=== PATIENT | female | born 1945 | race Caucasian/White ===

== ENCOUNTER 2019-10-03 07:57 | Emergency (ER) | payer MEDICARE, MEDICAID ==
[~2019-10-03] VITALS: Ht 160 cm; Wt 77.1 kg
[~2019-10-03 07:57] MED LIST: ACET-2267 PO; AMLO5TAB9 PO; APIX5TAB PO; ASPI-586 PO; ATOR20TA66 PO; CARV25TA PO; LEVE500T6 PO; LOSA50TA63 PO; PANT40TA3 PO; POTA10CA43 PO
[2019-10-03] MEDS ORDERED: CYCL10TA9 PO (08:33)
--- NOTE | 2019-10-03 08:33 | ED Back Pain ---
General Chief Complaint: Back Problems Stated Complaint: BACK PAIN Nursing Triage Note: Patient reports left lower back/upper left buttock pain for 3 weeks, denies radiation down her leg, denies any injury. States she has never had pain like this before. Nursing Sepsis Screen: No Definite Risk Source of Information: Patient Exam Limitations: No Limitations History of Present Illness Date Seen by Provider: Oct 03, 2019 Time Seen by Provider: 08:25 Initial Comments 74 y/o female presents w 3 weeks of left low back pain without injury. Worse w changing positions or certain movements. No radiation of pain, no dysuria or hematuria. No fever, chills or wt loss. Denies abdominal or flank pain. Taking OTC ibuprofen occasionally w some relief. Pain is not constant. She has not seen her PCP re this back pain. Allergies and Home Medications Allergies Coded Allergies: [id number]-Gfv Reductase Inhibitor (Verified Allergy, Unknown, 10/03/19) Home Medications Acetaminophen 500 Mg Tablet, 1,000 MG PO Q8H PRN for PAIN-MILD, (Reported) TAKE 2 (500MG) TABS Aspirin 81 Mg Tablet.dr, 81 MG PO DAILY, (Reported) Atorvastatin Calcium 20 Mg Tablet, 20 MG PO HS, (Reported) Carvedilol 25 Mg Tablet, 25 MG PO BID, (Reported) Cyclobenzaprine HCl 10 Mg Tablet, 10 MG PO qhs PRN for SPASMS Prescribed by: JESUS VERA on 10/03/19 0833 Levetiracetam 500 Mg Tablet, 500 MG PO BID Prescribed by: NESSA LAKHANI on 06/26/18 0958 Losartan Potassium 50 Mg Tablet, 50 MG PO HS, (Reported) Pantoprazole Sodium 40 Mg Tablet.dr, 40 MG PO DAILY, (Reported) Potassium Chloride 10 Meq Capsule.er, 10 MEQ PO DAILY, (Reported) Patient Home Medication List Home Medication List Reviewed: Yes Review of Systems Constitutional: see HPI; No dizziness, No fever, No malaise, No weakness Respiratory: no symptoms reported Cardiovascular: no symptoms reported Gastrointestinal: No abdominal pain, No constipation, No diarrhea, No loss of appetite, No nausea, No vomiting Genitourinary: see HPI; No decreased output, No dysuria, No hematuria, No nocturia Musculoskeletal: see HPI, back pain; No joint pain; muscle pain; No muscle cramps, No neck pain Past [id number]-[id number] Hx Past Med/Social Hx: Reviewed Nursing Past Med/Soc Hx Patient Social History Alcohol Use: Denies Use Recreational Drug Use: No Smoking Status: Never a Smoker 2nd Hand Smoke Exposure: No Recent Foreign Travel: No Contact w/Someone Who Travel: No Recent Infectious Disease Expo: No Recent Hopitalizations: No Physical Abuse: No Sexual Abuse: No Mistreated: No Fear: No Seasonal Allergies Seasonal Allergies: No Past Medical History Surgeries: Yes (heart valve replacement) Respiratory: No Cardiac: Yes Coronary Artery Disease, Hypertension Neurological: Yes Stroke Genitourinary: Yes Bladder Infection Gastrointestinal: No Musculoskeletal: No Endocrine: No HEENT: No Cancer: No Psychosocial: No Integumentary: No Physical Exam Vital Signs Vital Signs - First Documented 10/03/19 08:05 Temp 36.4 Pulse 82 Resp 22 B/P (MAP) 208/105 (139) Pulse Ox 97 O2 Delivery Room Air Capillary Refill : Less Than 3 Seconds Height, Weight, BMI Height: '" Weight: lbs. oz. kg; 30.00 BMI Method: General Appearance: No Apparent Distress, WD/WN Cardiovascular: Regular Rate, Rhythm, No Murmur Respiratory: Chest Non Tender, Lungs Clear, Normal Breath Sounds Gastrointestinal: Non Tender, Soft Back: Normal Inspection, No CVA Tenderness, No Vertebral Tenderness, Decreased Range of Motion, Muscle Spasm (lower left lumbar paraspinal ms) Neurologic/Psychiatric: Alert, Oriented x3, No Motor/Sensory Deficits, Normal Mood/Affect Skin: Normal Color, Warm/Dry Progress/Results/Core Measures Results/Orders Lab Results Laboratory Tests Test 10/03/19 08:05 Range/Units Urine Color PALE YELLOW Urine Clarity CLEAR Urine pH 6.5 5-9 Urine Specific [place] 1.010 L 1.016-1.022 Urine Protein 1+ H NEGATIVE Urine Glucose (UA) NEGATIVE NEGATIVE Urine Ketones NEGATIVE NEGATIVE Urine Nitrite NEGATIVE NEGATIVE Urine Bilirubin NEGATIVE NEGATIVE Urine Urobilinogen 0.2 < = 1.0 MG/DL Urine Leukocyte Esterase NEGATIVE NEGATIVE Urine RBC (Auto) NEGATIVE NEGATIVE Urine RBC NONE /HPF Urine WBC NONE /HPF Urine Squamous Epithelial Cells RARE /HPF Urine Crystals NONE /LPF Urine Bacteria NEGATIVE /HPF Urine Casts NONE /LPF Urine Mucus NEGATIVE /LPF Urine Culture Indicated NO My Orders Orders - ROMACKENZIESTJESUS TOLEDO DO Ua Culture If Indicated (10/03/19 08:30) Vital Signs/I&O 10/03/19 10/03/19 08:05 09:03 Temp 36.4 Pulse 82 74 Resp 22 22 B/P (MAP) 208/105 (139) 188/104 Pulse Ox 97 94 O2 Delivery Room Air Room Air Blood Pressure Mean: 139 Departure Impression Primary Impression: Acute lumbar myofascial strain Qualified Codes: S39.012A - Strain of muscle, fascia and tendon of lower back, initial encounter Disposition: HOME, SELF-CARE Condition: Stable Departure-Patient Inst. Decision time for Depature: 08:32 Referrals: NO,LOCAL PHYSICIAN (PCP/Family) Primary Care Physician Patient Instructions: Lumbar Muscle Strain (DC) Add. Discharge Instructions: See Dr Bustos (your PCP) in 1 week if your back pain is not improving. All discharge instructions reviewed with patient and/or family. Voiced understanding. Scripts Cyclobenzaprine HCl (Cyclobenzaprine HCl) 10 Mg Tablet 10 MG PO qhs PRN for SPASMS, #15 TAB 0 Refills Prov: JESUS VERA DO 10/03/19 JESUS VERA DO Oct 03, 2019 08:33
[2019-10-03 08:43] LABS: CLARITY,URINE CLEAR; COLOR,URINE PALE YELLOW
[2019-10-03 08:44] LABS: BACTERIA,URINE NEGATIVE /HPF; BILIRUBIN,URINE NEGATIVE (NEGATIVE); GLUCOSE, URINE (UA) NEGATIVE (NEGATIVE); KETONES,URINE NEGATIVE (NEGATIVE); LEUKOCYTE ESTERASE ,URINE NEGATIVE (NEGATIVE); NITRITE,URINE NEGATIVE (NEGATIVE); PH,URINE 6.5 (5-9); PROTEIN,URINE 1+ (NEGATIVE); SQUAMOUS EPITHELIAL CELL,UR RARE /HPF
[2019-10-03 09:03] VITALS: BP 188/104
--- OUTSIDE RECORDS SUMMARY | 2019-10-03 12:26 | XMS REPORT | Continuity of Care Document ---
Demographics Preferred Language Unknown Marital Status Unknown Jainism Affiliation Unknown Race Unknown Ethnic Group Unknown Author Organization Unknown Address Unknown Phone Unavailable Allergies Active Description Code Type Severity Reaction Onset Reported/Identified Relationship to Patient Clinical Status Yes Cfmjpvy-Gmf-Meo Reductase Inhibitor [id number] Drug Allergy Unknown N/A 03/01/2018 Medications There is no data. Problems Date Dx Coded Attending Type Code Diagnosis Diagnosed By 03/01/2018 LAURA PULIDO MD, Ot E78.00 PURE HYPERCHOLESTEROLEMIA, UNSPECIFIED 03/01/2018 LAURA PULIDO MD Ot I25.10 ATHSCL HEART DISEASE OF [place] CORONARY 03/01/2018 LAURA PULIDO MD Ot K21.9 GASTRO-ESOPHAGEAL REFLUX DISEASE WITHOUT 03/01/2018 LAURA PULIDO MD Ot R60.0 LOCALIZED EDEMA 03/01/2018 LAURA PULIDO MD Ot Z79.01 SENIOR LIVING (CURRENT) USE OF ANTICOAGULANT 03/01/2018 LAURA PULIDO MD Ot Z86.73 PRSNL HX OF TIA (TIA), AND CEREB INFRC W 03/01/2018 LAURA PULIDO MD Ot Z88.8 ALLERGY STATUS TO OTH DRUG/MEDS/BIOL SUB 03/01/2018 LAURA PULIDO MD Ot Z98.890 OTHER SPECIFIED POSTPROCEDURAL STATES 03/03/2018 LAURA PULIDO MD, Ot E78.00 PURE HYPERCHOLESTEROLEMIA, UNSPECIFIED 03/03/2018 LAURA PULIDO MD Ot I25.10 ATHSCL HEART DISEASE OF [place] CORONARY 03/03/2018 LAURA PULIDO MD Ot K21.9 GASTRO-ESOPHAGEAL REFLUX DISEASE WITHOUT 03/03/2018 LAURA PULIDO MD Ot R60.0 LOCALIZED EDEMA 03/03/2018 LAURA PULIDO MD Ot Z79.01 PSYCHOLOGY DEPARTMENT CHAIR (CURRENT) USE OF ANTICOAGULANT 03/03/2018 LAURA PULIDO MD Ot Z86.73 PRSNL HX OF TIA (TIA), AND CEREB INFRC W 03/03/2018 LAURA PULIDO MD Ot Z88.8 ALLERGY STATUS TO OTH DRUG/MEDS/BIOL SUB 03/03/2018 ASHOK PADGETT, LAURA Loo Ot Z98.890 OTHER SPECIFIED POSTPROCEDURAL STATES 03/07/2018 NELIDA MALHOTRA MD, Ot Z01.818 ENCOUNTER FOR OTHER PREPROCEDURAL EXAMIN 03/08/2018 NELIDA MALHOTRA MD, Ot Z01.818 ENCOUNTER FOR OTHER PREPROCEDURAL EXAMIN 03/14/2018 NELIDA MALHOTRA MD, Ot E11.9 TYPE 2 DIABETES MELLITUS WITHOUT COMPLIC 03/14/2018 NELIDA MLAHOTRA MD, Ot I1 0 ESSENTIAL (PRIMARY) HYPERTENSION 03/14/2018 NELIDA MALHOTRA MD, Ot Z79.01 SENIOR LIVING (CURRENT) USE OF ANTICOAGULANT 03/14/2018 NELIDA MALHOTRA MD, Ot Z79.82 PSYCHOLOGY DEPARTMENT CHAIR (CURRENT) USE OF ASPIRIN 03/14/2018 NELIDA MALHOTRA MD, Ot Z79.84 PSYCHOLOGY DEPARTMENT CHAIR (CURRENT) USE OF ORAL HYPOGLYC 03/14/2018 NELIDA MALHOTRA MD, Ot Z79.899 OTHER PSYCHOLOGY DEPARTMENT CHAIR (CURRENT) DRUG THERAPY 03/14/2018 NELIDA MALHOTRA MD Ot Z86.73 PRSNL HX OF TIA (TIA), AND CEREB INFRC W 03/16/2018 NELIDA MALHOTRA MD Ot E11.9 TYPE 2 DIABETES MELLITUS WITHOUT COMPLIC 03/16/2018 NELIDA MALHOTRA MD, Ot I1 0 ESSENTIAL (PRIMARY) HYPERTENSION 03/16/2018 NELIDA MALHOTRA MD Ot Z79.01 PSYCHOLOGY DEPARTMENT CHAIR (CURRENT) USE OF ANTICOAGULANT 03/16/2018 NELIDA MALHOTRA MD Ot Z79.82 SENIOR LIVING (CURRENT) USE OF ASPIRIN 03/16/2018 NELIDA MALHOTRA MD Ot Z79.84 PSYCHOLOGY DEPARTMENT CHAIR (CURRENT) USE OF ORAL HYPOGLYC 03/16/2018 NELIDA MALHOTRA MD, Ot Z79.899 OTHER PSYCHOLOGY DEPARTMENT CHAIR (CURRENT) DRUG THERAPY 03/16/2018 NELIDA MALHOTRA MD, Ot Z86.73 PRSNL HX OF TIA (TIA), AND CEREB INFRC W 06/24/2018 KELLY COBIAN MD Ot E04.2 NONTOXIC MULTINODULAR GOITER 06/26/2018 NESSA LAKHANI MD Ot E04. 2 NONTOXIC MULTINODULAR GOITER 06/26/2018 NESSA LAKHANI MD Ot E78. 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 A1 MYOCARDIAL INFARCTION TYPE 2 06/26/2018 NESSA LAKHANI MD Ot I25. 10 ATHSCL HEART DISEASE OF [place] CORONARY 06/26/2018 NESSA LAKHANI MD Ot I48. 0 PAROXYSMAL ATRIAL FIBRILLATION 06/26/2018 NESSA LAKHANI MD Ot I69.320 APHASIA FOLLOWING CEREBRAL INFARCTION 06/26/2018 NESSA LAKHANI MD Ot I69.328 OTH SPEECH/LANG DEFICITS FOLLOWING CEREB 06/26/2018 NESSA LAKHANI MD Ot I69.351 HEMIPLGA FOLLOWING CEREBRAL INFRC AFF RI 06/26/2018 NESSA LAKHANI MD Ot I69.391 DYSPHAGIA FOLLOWING CEREBRAL INFARCTION 06/26/2018 NESSA LAKHANI MD Ot I95. 9 HYPOTENSION, UNSPECIFIED 06/26/2018 NESSA LAKHANI MD Ot K21. 9 GASTRO-ESOPHAGEAL REFLUX DISEASE WITHOUT 06/26/2018 NESSA LAKHANI MD Ot N17. 9 ACUTE KIDNEY FAILURE, UNSPECIFIED 06/26/2018 NESSA LAKHANI MD Ot R00. 1 BRADYCARDIA, UNSPECIFIED 06/26/2018 NESSA LAKHANI MD Ot R13. 10 DYSPHAGIA, UNSPECIFIED 06/26/2018 NESSA LAKHANI MD Ot S09.93XA UNSPECIFIED INJURY OF FACE, INITIAL ENCO 06/26/2018 NESSA LAKHANI MD Ot X58.XXXA EXPOSURE TO OTHER SPECIFIED FACTORS, INI 06/26/2018 KAR PADGETT, NESSA Loo Ot Z23 ENCOUNTER FOR IMMUNIZATION 07/07/2018 KELLY COBIAN MD Ot E04.2 NONTOXIC MULTINODULAR GOITER 07/08/2018 RAMY AYALA MD Ot E78. 2 MIXED HYPERLIPIDEMIA 07/08/2018 RAMY AYALA MD Ot I10 ESSENTIAL (PRIMARY) HYPERTENSION 07/08/2018 RAMY AYALA MD Ot I48. 2 CHRONIC ATRIAL FIBRILLATION 07/08/2018 RAMY AYALA MD Ot I63. 9 CEREBRAL INFARCTION, UNSPECIFIED 07/08/2018 RAMY AYALA MD Ot R06. 09 OTHER FORMS OF DYSPNEA 07/19/2018 RAMY AYALA MD Ot E78. 2 MIXED HYPERLIPIDEMIA 07/19/2018 RAMY AYALA MD Ot I10 ESSENTIAL (PRIMARY) HYPERTENSION 07/19/2018 RAMY AYALA MD Ot I48. 2 CHRONIC ATRIAL FIBRILLATION 07/19/2018 RAMY AYALA MD Ot I63. 9 CEREBRAL INFARCTION, UNSPECIFIED 07/19/2018 RAMY AYALA MD Ot R06. 09 OTHER FORMS OF DYSPNEA 07/20/2018 RAMY AYALA MD Ot E11. 9 TYPE 2 DIABETES MELLITUS WITHOUT COMPLIC 07/20/2018 RAMY AYALA MD Ot E78. 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 2 CHRONIC ATRIAL FIBRILLATION 07/20/2018 RAMY AYALA MD Ot I65. 23 OCCLUSION AND STENOSIS OF BILATERAL [place] 07/20/2018 RAMY AYALA MD Ot R06. 09 OTHER FORMS OF DYSPNEA 07/20/2018 RAMY AYALA MD Ot R60. 9 EDEMA, UNSPECIFIED 07/20/2018 RAMY AYALA MD Ot Z79. 01 PSYCHOLOGY DEPARTMENT CHAIR (CURRENT) USE OF ANTICOAGULANT 07/20/2018 RAMY AYALA MD Ot Z79. 82 PSYCHOLOGY DEPARTMENT CHAIR (CURRENT) USE OF ASPIRIN 07/20/2018 RAMY AYALA MD Ot Z79.899 OTHER SENIOR LIVING (CURRENT) DRUG THERAPY 07/20/2018 RAMY AYALA MD Ot Z86. 73 PRSNL HX OF TIA (TIA), AND CEREB INFRC W 07/23/2018 RAMY AYALA MD Ot E11. 9 TYPE 2 DIABETES MELLITUS WITHOUT COMPLIC 07/23/2018 RAMY AYALA MD Ot E78. 2 MIXED HYPERLIPIDEMIA 07/23/2018 RAMY AYALA MD Ot I10 ESSENTIAL (PRIMARY) HYPERTENSION 07/23/2018 RAMY AYALA MD Ot I25.118 ATHSCL HEART DISEASE OF [place] COR ART W 07/23/2018 RAMY AYALA MD Ot I48. 2 CHRONIC ATRIAL FIBRILLATION 07/23/2018 RAMY AYALA MD Ot I65. 23 OCCLUSION AND STENOSIS OF [place] 07/23/2018 RAMY AYALA MD Ot R06. 09 OTHER FORMS OF DYSPNEA 07/23/2018 RAMY AYALA MD Ot R60. 9 EDEMA, UNSPECIFIED 07/23/2018 RAMY AYALA MD Ot Z79. 01 SENIOR LIVING (CURRENT) USE OF ANTICOAGULANT 07/23/2018 RAMY AYALA MD Ot Z79. 82 SENIOR LIVING (CURRENT) USE OF ASPIRIN 07/23/2018 RAMY AYALA MD Ot Z79.899 OTHER SENIOR LIVING (CURRENT) DRUG THERAPY 07/23/2018 RAMY AYALA MD Ot Z86. 73 PRSNL HX OF TIA (TIA), AND CEREB INFRC W 07/29/2018 RAMY AYALA MD Ot E78. 2 MIXED HYPERLIPIDEMIA 07/29/2018 RAMY AYALA MD Ot I10 ESSENTIAL (PRIMARY) HYPERTENSION 07/29/2018 RAMY AYALA MD Ot I48. 2 CHRONIC ATRIAL FIBRILLATION 07/29/2018 RAMY AYALA MD Ot I63. 9 CEREBRAL INFARCTION, UNSPECIFIED 07/29/2018 RAMY AYALA MD Ot R06. 09 OTHER FORMS OF DYSPNEA 08/04/2018 RAMY AYALA MD Ot E78. 2 MIXED HYPERLIPIDEMIA 08/04/2018 RAMY AYALA MD Ot I10 ESSENTIAL (PRIMARY) HYPERTENSION 08/04/2018 RAMY AYALA MD Ot I48. 2 CHRONIC ATRIAL FIBRILLATION 08/04/2018 RAMY AYALA MD Ot I63. 9 CEREBRAL INFARCTION, UNSPECIFIED 08/04/2018 RAMY AYALA MD Ot R06. 09 OTHER FORMS OF DYSPNEA 08/08/2018 RAMY AYALA MD Ot E78. 2 MIXED HYPERLIPIDEMIA 08/08/2018 RAMY AYALA MD Ot I10 ESSENTIAL (PRIMARY) HYPERTENSION 08/08/2018 RAMY AYALA MD Ot I48. 2 CHRONIC ATRIAL FIBRILLATION 08/08/2018 RAMY AYALA MD Ot I63. 9 CEREBRAL INFARCTION, UNSPECIFIED 08/08/2018 RAMY AYALA MD Ot R06. 09 OTHER FORMS OF DYSPNEA 08/19/2018 RAMY AYALA MD Ot E78. 2 MIXED HYPERLIPIDEMIA 08/19/2018 RAMY AYALA MD Ot I10 ESSENTIAL (PRIMARY) HYPERTENSION 08/19/2018 RAMY AYALA MD Ot I48. 2 CHRONIC ATRIAL FIBRILLATION 08/19/2018 RAMY AYALA MD Ot I63. 9 CEREBRAL INFARCTION, UNSPECIFIED 08/19/2018 RAMY AYALA MD Ot R06. 09 OTHER FORMS OF DYSPNEA 11/11/2018 RAMY AYALA MD Ot Z48.812 ENCNTR FOR SURGICAL AFTCR FOLLOWING SURG 11/11/2018 RAMY AYALA MD Ot Z95. 5 PRESENCE OF CORONARY ANGIOPLASTY IMPLANT 12/15/2018 RAMY AYALA MD Ot Z48.812 ENCNTR FOR SURGICAL AFTCR FOLLOWING SURG 12/15/2018 RAMY AYALA MD Ot Z95. 5 PRESENCE OF CORONARY ANGIOPLASTY IMPLANT 12/16/2018 RAMY AYALA MD Ot Z48.812 ENCNTR FOR SURGICAL AFTCR FOLLOWING SURG 12/16/2018 RAMY AYALA MD Ot Z95. 5 PRESENCE OF CORONARY ANGIOPLASTY IMPLANT 12/16/2018 RAMY AYALA MD Ot Z48.812 ENCNTR FOR SURGICAL AFTCR FOLLOWING SURG 12/16/2018 RAMY AYALA MD Ot Z95. 5 PRESENCE OF CORONARY ANGIOPLASTY IMPLANT 01/05/2019 RAMY AYALA MD Ot Z48.812 ENCNTR FOR SURGICAL AFTCR FOLLOWING SURG 01/05/2019 RAMY AYALA MD Ot Z95. 5 PRESENCE OF CORONARY ANGIOPLASTY IMPLANT 01/24/2019 RAMY AYALA MD Ot Z48.812 ENCNTR FOR SURGICAL AFTCR FOLLOWING SURG 01/24/2019 RAMY AYALA MD Ot Z95. 5 PRESENCE OF CORONARY ANGIOPLASTY IMPLANT 03/16/2019 RAMY AYALA MD Ot Z48.812 ENCNTR FOR SURGICAL AFTCR FOLLOWING SURG 03/16/2019 RAMY AYALA MD Ot Z95. 5 PRESENCE OF CORONARY ANGIOPLASTY IMPLANT 10/03/2019 ARANZA PADGETT, KELLY Loo Ot E04.2 NONTOXIC MULTINODULAR GOITER 10/03/2019 RAMY AYALA MD Ot E78. 2 MIXED HYPERLIPIDEMIA 10/03/2019 RAMY AYALA MD Ot I10 ESSENTIAL (PRIMARY) HYPERTENSION 10/03/2019 RAMY AYALA MD Ot I48. 2 CHRONIC ATRIAL FIBRILLATION 10/03/2019 LUCY PADGETT, RAMY Lange Ot I63. 9 CEREBRAL INFARCTION, UNSPECIFIED 10/03/2019 LUCY PADGETT, RAMY Lange Ot R06. 09 OTHER FORMS OF DYSPNEA 10/03/2019 LUCY PADGETT, RAMY Lange Ot E78. 2 MIXED HYPERLIPIDEMIA 10/03/2019 LUCY PADGETT, RAMY Lange Ot I10 ESSENTIAL (PRIMARY) HYPERTENSION 10/03/2019 RAMY AYALA MD Ot I48. 2 CHRONIC ATRIAL FIBRILLATION 10/03/2019 RAMY AYALA MD Ot I63. 9 CEREBRAL INFARCTION, UNSPECIFIED 10/03/2019 LUCY PADGETT, RAMY Lange Ot R06. 09 OTHER FORMS OF DYSPNEA 10/03/2019 Ot Z48.812 EN CNTR FOR SURGICAL AFTCR FOLLOWING SURG 10/03/2019 Ot Z95.5 PRES ENCE OF CORONARY ANGIOPLASTY IMPLANT 10/03/2019 ARANZA PADGETT, KELLY Loo Ot E04.2 NONTOXIC MULTINODULAR GOITER 10/03/2019 RAMY AYALA MD Ot E78. 2 MIXED HYPERLIPIDEMIA 10/03/2019 RAMY AYALA MD Ot I10 ESSENTIAL (PRIMARY) HYPERTENSION 10/03/2019 RAMY AYALA MD Ot I48. 2 CHRONIC ATRIAL FIBRILLATION 10/03/2019 RAMY AYALA MD Ot I63. 9 CEREBRAL INFARCTION, UNSPECIFIED 10/03/2019 RAMY AYALA MD Ot R06. 09 OTHER FORMS OF DYSPNEA 10/03/2019 RAMY AYALA MD Ot E78. 2 MIXED HYPERLIPIDEMIA 10/03/2019 RAMY AYALA MD Ot I10 ESSENTIAL (PRIMARY) HYPERTENSION 10/03/2019 RAMY AYALA MD Ot I48. 2 CHRONIC ATRIAL FIBRILLATION 10/03/2019 RAMY AYALA MD Ot I63. 9 CEREBRAL INFARCTION, UNSPECIFIED 10/03/2019 RAMY AYALA MD Ot R06. 09 OTHER FORMS OF DYSPNEA 10/03/2019 Ot Z48.812 EN CNTR FOR SURGICAL AFTCR FOLLOWING SURG 10/03/2019 Ot Z95.5 PRES ENCE OF CORONARY ANGIOPLASTY IMPLANT Procedures There is no data. Results Test Result Range Complete urinalysis with reflex to cultu re - 03/01/18 18:40 Urine color determination YELLOW NRG Urine clarity determination SLIGHTLY CLOUDY NRG Urine pH measurement by test strip 8 5-9 Specific gravity of urine by test strip 1.010 1.016-1.022 Urine protein assay by test strip, semi-quantitative NEGATIVE NEGATIVE Urine glucose detection by automated test strip NE GATIVE NEGATIVE Erythrocytes detection in urine sediment by light micr oscopy NEGATIVE NEGATIVE Urine ketones detection by automated test strip NE GATIVE NEGATIVE Urine nitrite detection by test strip NEGATIVE NEGATIVE Urine total bilirubin detection by test strip NEGA TIVE NEGATIVE Urine urobilinogen measurement by automated test strip (mass/volume) NORMAL NORMAL Urine leukocyte esterase detection by dipstick NEG ATIVE NEGATIVE Automated urine sediment erythrocyte cou nt by microscopy (number/high power field) NONE NRG Automated urine sediment leukocyte count by microscopy (number/high power field) NONE NRG Bacteria detection in urine sediment by light microsco py NEGATIVE NRG Squamous epithelial cells detection in u rine sediment by light microscopy 0-2 NRG Crystals detection in urine sediment by light microsco py NONE NRG Casts detection in urine sediment by light microscopy NONE NRG Mucus detection in urine sediment by light microscopy NEGATIVE NRG Complete urinalysis with reflex to culture NO NRG Amorphous sediment detection in urine sediment by ligh t microscopy FEW ADRIENNE PHOSPHATE NRG Blood CBC with ordered manual differenti al panel - 06/24/18 16:07 Blood leukocytes automated count (number/volume) 7.6 10*3/uL 4.3-11.0 Blood erythrocytes automated count (number/volume) 4.93 10*6/uL 4.35-5.85 Venous blood hemoglobin measurement (mass/volume) 15.0 g/dL 11.5-16.0 Blood hematocrit (volume fraction) 44 % 35-52 Automated erythrocyte mean corpuscular volume 89 [ foz_us] 80-99 Automated erythrocyte mean corpuscular h emoglobin (mass per erythrocyte) 30 pg 25-34 Automated erythrocyte mean corpuscular h emoglobin concentration measurement (mass/volume) 34 g/dL 32-36 Automated erythrocyte distribution width ratio 13. 9 % 10.0- 14.5 Automated blood platelet count (count/volume) 202 10*3/uL 130-400 Automated blood platelet mean volume measurement 10.9 [foz_us] 7.4-10.4 Automated blood neutrophils/100 leukocytes 56 % 42-75 Automated blood lymphocytes/100 leukocytes 30 % 12-44 Blood monocytes/100 leukocytes 10 % NRG Automated blood eosinophils/100 leukocytes 4 % 0-10 Automated blood basophils/100 leukocytes 1 % 0-10 Blood neutrophils automated count (number/volume) 4.3 10*3 1.8-7.8 Blood lymphocytes automated count (number/volume) 2.3 10*3 1.0-4.0 Blood monocytes automated count (number/volume) 0. 7 10*3 0.0-1.0 Automated eosinophil count 0.3 10*3/uL 0 .0-0.3 Automated blood basophil count (count/volume) 0.1 10*3/uL 0.0-0.1 Manual blood segmented neutrophils/100 leukocytes 49 % NRG Blood band neutrophils/100 leukocytes 1 % NRG Manual blood lymphocytes/100 leukocytes 34 % NRG Manual eosinophils/100 leukocytes in nose 6 % NRG Manual blood basophils/100 leukocytes 0 % NRG Blood erythrocyte morphology finding identification NORMAL NRG PT panel in platelet poor plasma by coag ulation assay - 06/24/18 16:07 Prothrombin time (PT) in platelet poor plasma by coagu lation assay 15.8 s 12.2-14.7 INR in platelet poor plasma or blood by coagulation as say 1.2 0.8-1.4 Activated partial thromboplastin time (a PTT) in platelet poor plasma bycoagulation assay - 06/24/18 16:07 Activated partial thromboplastin time (a PTT) in platelet poor plasma bycoagulation assay 23 s 24-35 Comprehensive metabolic panel - 06/24/18 16:07 Serum or plasma sodium measurement (moles/volume) 142 mmol/L 135-145 Serum or plasma potassium measurement (moles/volume) 4.7 mmol/L 3.6-5.0 Serum or plasma chloride measurement (moles/volume) 99 mmol/L 98-107 Carbon dioxide 19 mmol/L 21-32 Serum or plasma anion gap determination (moles/volume) 24 mmol/L 5-14 Serum or plasma urea nitrogen measurement (mass/volume ) 34 mg/dL 7-18 Serum or plasma creatinine measurement (mass/volume) 1.36 mg/dL 0.60-1.30 Serum or plasma urea nitrogen/creatinine mass ratio 25 NRG Serum or plasma creatinine measurement w ith calculation of estimated glomerular filtration rate 38 NRG Serum or plasma glucose measurement (mass/volume) 142 mg/dL 70-105 Serum or plasma calcium measurement (mass/volume) 9.6 mg/dL 8.5-10.1 Serum or plasma total bilirubin measurement (mass/volu me) 0.6 mg/dL 0.1-1.0 Serum or plasma alkaline phosphatase robert surement (enzymatic activity/volume) 93 U/L 40-136 Serum or plasma aspartate aminotransfera se measurement (enzymatic activity/volume) 15 U/L 5-34 Serum or plasma alanine aminotransferase measurement (enzymatic activity/volume) 12 U/L 0-55 Serum or plasma protein measurement (mass/volume) 7.1 g/dL 6.4-8.2 Serum or plasma albumin measurement (mass/volume) 4.4 g/dL 3.2-4.5 CALCIUM CORRECTED 9.3 mg/dL 8.5-10.1 TROPONIN T - 06/24/18 16:07 TROPONIN T 18 % <=10 Complete blood count (CBC) with automate d white blood cell (WBC) differential - 06/24/18 19:35 Blood leukocytes automated count (number/volume) 9.9 10*3/uL 4.3-11.0 Blood erythrocytes automated count (number/volume) 4.84 10*6/uL 4.35-5.85 Venous blood hemoglobin measurement (mass/volume) 14.3 g/dL 11.5-16.0 Blood hematocrit (volume fraction) 42 % 35-52 Automated erythrocyte mean corpuscular volume 87 [ foz_us] 80-99 Automated erythrocyte mean corpuscular h emoglobin (mass per erythrocyte) 30 pg 25-34 Automated erythrocyte mean corpuscular h emoglobin concentration measurement (mass/volume) 34 g/dL 32-36 Automated erythrocyte distribution width ratio 14. 5 % 10.0- 14.5 Automated blood platelet count (count/volume) 174 10*3/uL 130-400 Automated blood platelet mean volume measurement 10.5 [foz_us] 7.4-10.4 Automated blood neutrophils/100 leukocytes 84 % 42-75 Automated blood lymphocytes/100 leukocytes 11 % 12-44 Blood monocytes/100 leukocytes 4 % 0-12 Automated blood eosinophils/100 leukocytes 1 % 0-10 Automated blood basophils/100 leukocytes 0 % 0-10 Blood neutrophils automated count (number/volume) 8.4 10*3 1.8-7.8 Blood lymphocytes automated count (number/volume) 1.1 10*3 1.0-4.0 Blood monocytes automated count (number/volume) 0. 4 10*3 0.0-1.0 Automated eosinophil count 0.1 10*3/uL 0 .0-0.3 Automated blood basophil count (count/volume) 0.0 10*3/uL 0.0-0.1 Comprehensive metabolic panel - 06/24/18 19:35 Serum or plasma sodium measurement (moles/volume) 142 mmol/L 135-145 Serum or plasma potassium measurement (moles/volume) 4.1 mmol/L 3.6-5.0 Serum or plasma chloride measurement (moles/volume) 105 mmol/L 98-107 Carbon dioxide 23 mmol/L 21-32 Serum or plasma anion gap determination (moles/volume) 14 mmol/L 5-14 Serum or plasma urea nitrogen measurement (mass/volume ) 33 mg/dL 7-18 Serum or plasma creatinine measurement (mass/volume) 1.23 mg/dL 0.60-1.30 Serum or plasma urea nitrogen/creatinine mass ratio 27 NRG Serum or plasma creatinine measurement w ith calculation of estimated glomerular filtration rate 43 NRG Serum or plasma glucose measurement (mass/volume) 133 mg/dL 70-105 Serum or plasma calcium measurement (mass/volume) 10.1 mg/dL 8.5-10.1 Serum or plasma total bilirubin measurement (mass/volu me) 0.9 mg/dL 0.1-1.0 Serum or plasma alkaline phosphatase robert surement (enzymatic activity/volume) 86 U/L 40-136 Serum or plasma aspartate aminotransfera se measurement (enzymatic activity/volume) 15 U/L 5-34 Serum or plasma alanine aminotransferase measurement (enzymatic activity/volume) 13 U/L 0-55 Serum or plasma protein measurement (mass/volume) 6.6 g/dL 6.4-8.2 Serum or plasma albumin measurement (mass/volume) 4.2 g/dL 3.2-4.5 CALCIUM CORRECTED 9.9 mg/dL 8.5-10.1 Complete urinalysis with reflex to cultu re - 06/24/18 21:45 Urine color determination YELLOW NRG Urine clarity determination CLEAR NR G Urine pH measurement by test strip 7 5-9 Specific gravity of urine by test strip 1.010 1.016-1.022 Urine protein assay by test strip, semi-quantitative 1+ NEGATIVE Urine glucose detection by automated test strip NE GATIVE NEGATIVE Erythrocytes detection in urine sediment by light micr oscopy 1+ NEGATIVE Urine ketones detection by automated test strip NE GATIVE NEGATIVE Urine nitrite detection by test strip NEGATIVE NEGATIVE Urine total bilirubin detection by test strip NEGA TIVE NEGATIVE Urine urobilinogen measurement by automated test strip (mass/volume) NORMAL NORMAL Urine leukocyte esterase detection by dipstick 1+ NEGATIVE Automated urine sediment erythrocyte cou nt by microscopy (number/high power field) [HPF] NRG Automated urine sediment leukocyte count by microscopy (number/high power field) [HPF] NRG Bacteria detection in urine sediment by light microsco py MODERATE NRG Squamous epithelial cells detection in u rine sediment by light microscopy 0-2 NRG Crystals detection in urine sediment by light microsco py PRESENT NRG Casts detection in urine sediment by light microscopy NONE NRG Mucus detection in urine sediment by light microscopy NEGATIVE NRG Complete urinalysis with reflex to culture YES NRG Amorphous sediment detection in urine sediment by ligh t microscopy FEW ADRIENNE PHOSPHATE NRG Bacterial urine culture - 06/24/18 21:45 Bacterial urine culture [id number] NRG COLONY COUNT <10,000 NRG FTX;REPORTABLE SUSCEPTIBILITY REPORTED 06/28/18 10: 05 NRG RML Sensitivity Panel - 06/24/18 21:45 Gentamicin susceptibility test by minimum inhibitory c oncentration <= NRG Trimethoprim/sulfamethoxazole susceptibi lity test by minimum inhibitoryconcentration <= NRG Levofloxacin susceptibility test by minimum inhibitory concentration <= NRG Ampicillin susceptibility test by minimum inhibitory c oncentration <= NRG Cefazolin susceptibility test by minimum inhibitory co ncentration <= NRG Ceftriaxone susceptibility test by minimum inhibitory concentration <= NRG Ciprofloxacin susceptibility test by minimum inhibitor y concentration <= NRG Meropenem susceptibility test by minimum inhibitory co ncentration <= NRG Nitrofurantoin susceptibility test by mi nimum inhibitory concentration 32 NRG Amoxicillin and clavulanate potassium susc VALENTINO = NRG Serum or plasma troponin i.cardiac measu rement (mass/volume) - 06/25/18 10:37 Serum or plasma troponin i.cardiac measurement (mass/v olume) < ng/mL <0.028 Automated blood complete blood count (he mogram) panel - 07/20/18 11:30 Blood leukocytes automated count (number/volume) 6.9 10*3/uL 4.3-11.0 Blood erythrocytes automated count (number/volume) 4.83 10*6/uL 4.35-5.85 Venous blood hemoglobin measurement (mass/volume) 14.4 g/dL 11.5-16.0 Blood hematocrit (volume fraction) 42 % 35-52 Automated erythrocyte mean corpuscular volume 86 [ foz_us] 80-99 Automated erythrocyte mean corpuscular h emoglobin (mass per erythrocyte) 30 pg 25-34 Automated erythrocyte mean corpuscular h emoglobin concentration measurement (mass/volume) 35 g/dL 32-36 Automated erythrocyte distribution width ratio 14. 3 % 10.0- 14.5 Automated blood platelet count (count/volume) 175 10*3/uL 130-400 Automated blood platelet mean volume measurement 10.9 [foz_us] 7.4-10.4 Comprehensive metabolic panel - 07/20/18 11:30 Serum or plasma sodium measurement (moles/volume) 144 mmol/L 135-145 Serum or plasma potassium measurement (moles/volume) 4.1 mmol/L 3.6-5.0 Serum or plasma chloride measurement (moles/volume) 109 mmol/L 98-107 Carbon dioxide 24 mmol/L 21-32 Serum or plasma anion gap determination (moles/volume) 11 mmol/L 5-14 Serum or plasma urea nitrogen measurement (mass/volume ) 24 mg/dL 7-18 Serum or plasma creatinine measurement (mass/volume) 1.04 mg/dL 0.60-1.30 Serum or plasma urea nitrogen/creatinine mass ratio 23 NRG Serum or plasma creatinine measurement w ith calculation of estimated glomerular filtration rate 52 NRG Serum or plasma glucose measurement (mass/volume) 100 mg/dL 70-105 Serum or plasma calcium measurement (mass/volume) 10.0 mg/dL 8.5-10.1 Serum or plasma total bilirubin measurement (mass/volu me) 0.7 mg/dL 0.1-1.0 Serum or plasma alkaline phosphatase robert surement (enzymatic activity/volume) 92 U/L 40-136 Serum or plasma aspartate aminotransfera se measurement (enzymatic activity/volume) 14 U/L 5-34 Serum or plasma alanine aminotransferase measurement (enzymatic activity/volume) 13 U/L 0-55 Serum or plasma protein measurement (mass/volume) 6.8 g/dL 6.4-8.2 Serum or plasma albumin measurement (mass/volume) 4.2 g/dL 3.2-4.5 CALCIUM CORRECTED 9.8 mg/dL 8.5-10.1 Lipid 1996 panel - 07/20/18 11:30 Serum or plasma triglyceride measurement (mass/volume) 131 mg/dL <150 Serum or plasma cholesterol measurement (mass/volume) 168 mg/dL < 200 Serum or plasma cholesterol in HDL measurement (mass/v olume) 39 mg/dL 40-60 Cholesterol in LDL [mass/volume] in serum or plasma by direct assay 111 mg/dL 1-129 Serum or plasma cholesterol in VLDL measurement (mass/ volume) 26 mg/dL 5-40 PT panel in platelet poor plasma by coag ulation assay - 07/20/18 11:30 Prothrombin time (PT) in platelet poor plasma by coagu lation assay 14.7 s 12.2-14.7 INR in platelet poor plasma or blood by coagulation as say 1.1 0.8-1.4 Activated partial thromboplastin time (a PTT) in platelet poor plasma bycoagulation assay - 07/20/18 11:30 Activated partial thromboplastin time (a PTT) in platelet poor plasma bycoagulation assay 32 s 24-35 Methicillin resistant Staphylococcus aur eus (MRSA) screening culture - 07/20/18 11:30 Methicillin resistant Staphylococcus aureus (MRSA) scr eening culture NEG NRG CULTURE, URINE - 09/27/19 10:23 CULTURE, URINE, ROUTINE SEE NOTE NRG Encounters ACCT No. Visit Date/Time Discharge Status Pt. Type Provider Facility Loc./Unit Complaint [id number] 09/27/2019 10:00:00 Document Registration [id number] 10/03/2019 08:01:00 020 09:00:00 DIS Emergency ROVENSTJESUS TOLEDO DO [facility] ER FS BACK PAIN [id number] 01/16/2019 11:18:00 020 00:01:00 DIS Outpatient RAMY AYALA MD [facility] CR STENT X 3 [id number] 12/12/2018 11:15:00 00:01:00 DIS Outpatient RAMY AYALA MD [facility] CR STENT X 3 [id number] 08/10/2018 14:00:00 14:00:00 CAN Preadmit KELLY COBIAN MD, V [facility] REHAB URINARY INCONTINENCE [id number] 07/20/2018 10:47:00 18:00:00 DIS Outpatient RAMY AYALA MD [facility] CATH ABN STRESS TEST [id number] 07/13/2018 08:01:00 23:59:59 CLS Outpatient RAMY AYALA MD [facility] CARD CVA,HTN [id number] 07/07/2018 12:46:00 23:59:59 CLS Outpatient RAMY AYALA MD [facility] CARD CVA,HTN [id number] 06/24/2018 17:02:00 11:21:00 DIS Inpatient KAR PADGETT, NESSA Loo [facility] ICU NEW ONSET SEIZURE [id number] 06/21/2018 08:51:00 23:59:59 CLS Outpatient KELLY COBIAN MD [facility] RAD THROID NODULE,RT [id number] 04/01/2018 07:25:00 23:59:59 CLS Preadmit RAMY AYALA MD [facility] CARD CVA,HTN [id number] 03/14/2018 07:04:00 10:45:00 DIS Outpatient NELIDA MALHOTRA MD [facility] ENDO DYSPHAGIA [id number] 03/07/2018 06:25:00 15:47:00 DIS Outpatient NELIDA MALHOTRA MD [facility] PREOP EGD [id number] 03/01/2018 16:21:00 18:55:00 DIS Emergency LAURA PULIDO MD [facility] ER R LEG SWELLING [id number] 03/17/2019 11:00:00 Document Registration
== END 2019-10-03 09:00 | disposition home or self-care (01) ==
LOC: ER FS 08:01
DX: S39.012A Strain of muscle, fascia and tendon of lower back, initial encounter (principal); I10 Essential (primary) hypertension; Z88.8 Allergy status to other drugs, medicaments and biological substances; Z79.82 Long term (current) use of aspirin; X58.XXXA Exposure to other specified factors, initial encounter
CPT/HCPCS: 81000; 99282

== ENCOUNTER 2019-10-16 10:47 | Emergency (ER) | payer MEDICARE, MEDICAID ==
[~2019-10-16] VITALS: Ht 160 cm; Wt 79.3 kg
[~2019-10-16 10:47] MED LIST changes: +CYCL10TA9 PO
--- NOTE | 2019-10-16 11:01 | ED Lower Extremity ---
General Chief Complaint: Lower Extremity Stated Complaint: TOE PAIN ON RT FOOT Source: patient Exam Limitations: no limitations History of Present Illness Date Seen by Provider: Oct 16, 2019 Time Seen by Provider: 10:57 Initial Comments 74-year-old female presents with pain in her fourth digit on her right foot. She reports ago stepped on last night. She has no abnormalities or deformities but has having pain. Patient wants to be evaluated to make sure it is not broken. Allergies and Home Medications Allergies Coded Allergies: Vzgpouj-Uks-Dhx Reductase Inhibitor (Verified Allergy, Unknown, 10/03/19) Home Medications Acetaminophen 500 Mg Tablet, 1,000 MG PO Q8H PRN for PAIN-MILD, (Reported) TAKE 2 (500MG) TABS Aspirin 81 Mg Tablet.dr, 81 MG PO DAILY, (Reported) Atorvastatin Calcium 20 Mg Tablet, 20 MG PO HS, (Reported) Carvedilol 25 Mg Tablet, 25 MG PO BID, (Reported) Cyclobenzaprine HCl 10 Mg Tablet, 10 MG PO qhs PRN for SPASMS Prescribed by: JESUS VERA on 10/03/19 0833 Levetiracetam 500 Mg Tablet, 500 MG PO BID Prescribed by: NESSA LAKHANI on 06/26/18 0958 Losartan Potassium 50 Mg Tablet, 50 MG PO HS, (Reported) Pantoprazole Sodium 40 Mg Tablet.dr, 40 MG PO DAILY, (Reported) Potassium Chloride 10 Meq Capsule.er, 10 MEQ PO DAILY, (Reported) Patient Home Medication List Home Medication List Reviewed: Yes Review of Systems Constitutional: no symptoms reported EENTM: no symptoms reported Respiratory: no symptoms reported Cardiovascular: no symptoms reported Musculoskeletal: see HPI Skin: no symptoms reported Psychiatric/Neurological: No Symptoms Reported Past Wqkvifw-Lpbcsi-Hpgbvy Hx Past Med/Social Hx: Reviewed Nursing Past Med/Soc Hx Patient Social History 2nd Hand Smoke Exposure: No Recent Foreign Travel: No Contact w/Someone Who Travel: No Recent Hopitalizations: No Seasonal Allergies Seasonal Allergies: No Past Medical History Surgeries: Yes (heart valve replacement) Abdominal, Joint Replacement, Orthopedic, Tubal Ligation Respiratory: No Cardiac: Yes Coronary Artery Disease, Hypertension Neurological: Yes Stroke Genitourinary: Yes Bladder Infection Gastrointestinal: No Gastroesophageal Reflux Musculoskeletal: No Endocrine: No Diabetes, Non-Insulin dep HEENT: No Cancer: No Psychosocial: No Integumentary: No Blood Disorders: No Adverse Reaction/Blood Tranf: No Physical Exam Vital Signs Vital Signs - First Documented 10/16/19 10:54 Temp 36.7 Pulse 101 Resp 18 B/P (MAP) 177/79 (111) Pulse Ox 96 O2 Delivery Room Air Capillary Refill : Height, Weight, BMI Height: 5'3.00" Weight: 150lbs. 0.0oz. 68.627185bs; 30.00 BMI Method:Stated General Appearance: WD/WN Cardiovascular: normal peripheral pulses Respiratory: chest non-tender, lungs clear, normal breath sounds Hips: bilateral hip non-tender Legs: bilateral leg non-tender Knees: bilateral knee non-tender, bilateral knee normal inspection, bilateral knee normal range of motion, bilateral knee no evidence of injury, bilateral knee bone tenderness, bilateral knee deformity, bilateral knee ecchymosis, bilateral knee joint effusion, bilateral knee nodules, bilateral knee nodules, bilateral knee pain, bilateral knee soft tissue tenderness, bilateral knee swelling, bilateral knee other Ankles: bilateral ankle non-tender Feet: right foot soft tissue tenderness (4th digit ) Neurologic/Psychiatric: normal mood/affect, oriented x 3 Skin: normal color, warm/dry Progress/Results/Core Measures Results/Orders My Orders Orders - VARINDER BURRELL DO Toe(S) (10/16/19 11:01) Vital Signs/I&O 10/16/19 10:54 Temp 36.7 Pulse 101 Resp 18 B/P (MAP) 177/79 (111) Pulse Ox 96 O2 Delivery Room Air Diagnostic Imaging Diagonstic Imaging: Xray Plain Films/CT/US/NM/MRI: other Comments No acute fracture or dislocation or other abnormality noted on x-ray of right fourth digit Departure Impression Primary Impression: Contusion of toe of right foot Qualified Codes: S90.121A - Contusion of right lesser toe(s) without damage to nail, initial encounter Disposition: HOME, SELF-CARE Condition: Stable Departure-Patient Inst. Referrals: NO,LOCAL PHYSICIAN (PCP/Family) Primary Care Physician Patient Instructions: Contusion (DC), Toe Injury, Ankle Fracture (DC) Add. Discharge Instructions: Follow-up with your primary care provider as needed All discharge instructions reviewed with patient and/or family. Voiced understanding. VARINDER BURRELL DO Oct 16, 2019 11:01
[2019-10-16 11:23] VITALS: BP 177/79
--- NOTE | 2019-10-16 11:50 | Diagnostic Imaging Report ---
Indication: Crush injury with pain. Findings: Dedicated radiographs of the toes showed no fracture or dislocation. In particular, the 4th toe which was of greatest pain appeared nonacute. Impression: No fracture identified. Dictated by: Dictated on workstation # [id number]
--- OUTSIDE RECORDS SUMMARY | 2019-10-16 12:09 | XMS REPORT | Continuity of Care Document ---
Demographics Preferred Language Unknown Marital Status Unknown Mormonism Affiliation Unknown Race Unknown Ethnic Group Unknown Author Author [employer] Organization [employer] Address Unknown Phone Unavailable Allergies Active Description Code Type Severity Reaction Onset Reported/Identified Relationship to Patient Clinical Status Yes Rewiokd-Txa-Xqx Reductase Inhibitor [id number] Drug Allergy Unknown N/A 03/01/2018 Yes Hefdtfd-Zrp-Lqg Reductase Inhibitor [id number] Drug Allergy Unknown N/A 03/01/2018 Yes No Known Drug Allergies [id number] Drug Allergy Unknown N/A 10/03/2019 Medications There is no data. Problems Date Dx Coded Attending Type Code Diagnosis Diagnosed By 03/01/2018 LAURA PULIDO MD, Ot E78.00 PURE HYPERCHOLESTEROLEMIA, UNSPECIFIED 03/01/2018 LAURA PULIDO MD Ot I25.10 ATHSCL HEART DISEASE OF [place] CORONARY 03/01/2018 LAURA PULIDO MD Ot K21.9 GASTRO-ESOPHAGEAL REFLUX DISEASE WITHOUT 03/01/2018 LAURA PULIDO MD Ot R60.0 LOCALIZED EDEMA 03/01/2018 LAURA PULIDO MD Ot Z79.01 SERVICE PLANNER (CURRENT) USE OF ANTICOAGULANT 03/01/2018 LAURA PULIDO MD Ot Z86.73 PRSNL HX OF TIA (TIA), AND CEREB INFRC W 03/01/2018 LAURA PULIDO MD Ot Z88.8 ALLERGY STATUS TO OTH DRUG/MEDS/BIOL SUB 03/01/2018 LAURA PULIDO MD Ot Z98.890 OTHER SPECIFIED POSTPROCEDURAL STATES 03/03/2018 LAURA PULIDO MD Ot E78.00 PURE HYPERCHOLESTEROLEMIA, UNSPECIFIED 03/03/2018 LAURA PULIDO MD Ot I25.10 ATHSCL HEART DISEASE OF [place] CORONARY 03/03/2018 LAURA PULIDO MD Ot K21.9 GASTRO-ESOPHAGEAL REFLUX DISEASE WITHOUT 03/03/2018 LAURA PULIDO MD Ot R60.0 LOCALIZED EDEMA 03/03/2018 LAURA PULIDO MD Ot Z79.01 SERVICE PLANNER (CURRENT) USE OF ANTICOAGULANT 03/03/2018 LAURA PULIDO MD Ot Z86.73 PRSNL HX OF TIA (TIA), AND CEREB INFRC W 03/03/2018 LAURA PULIDO MD Ot Z88.[address] [facility] DRUG/MEDS/BIOL SUB 03/03/2018 LAURA PULIDO MD Ot Z98.890 OTHER SPECIFIED POSTPROCEDURAL STATES 03/07/2018 NELIDA MALHOTRA MD Ot Z01.818 ENCOUNTER FOR OTHER PREPROCEDURAL EXAMIN 03/08/2018 NELIDA MALHOTRA MD Ot Z01.818 ENCOUNTER FOR OTHER PREPROCEDURAL EXAMIN 03/14/2018 NELIDA MALHOTRA MD Ot E11.9 TYPE 2 DIABETES MELLITUS WITHOUT COMPLIC 03/14/2018 NELIDA MALHOTRA MD Ot I1 0 ESSENTIAL (PRIMARY) HYPERTENSION 03/14/2018 NELIDA MALHOTRA MD Ot Z79.01 SERVICE PLANNER (CURRENT) USE OF ANTICOAGULANT 03/14/2018 NELIDA MALHOTRA MD Ot Z79.82 SERVICE PLANNER (CURRENT) USE OF ASPIRIN 03/14/2018 NELIDA MALHOTRA MD Ot Z79.84 SERVICE PLANNER (CURRENT) USE OF ORAL HYPOGLYC 03/14/2018 NELIDA MALHOTRA MD Ot Z79.899 OTHER SERVICE PLANNER (CURRENT) DRUG THERAPY 03/14/2018 NELIDA MALHOTRA MD, Ot Z86.73 PRSNL HX OF TIA (TIA), AND CEREB INFRC W 03/16/2018 NELIDA MALHOTRA MD Ot E11.9 TYPE 2 DIABETES MELLITUS WITHOUT COMPLIC 03/16/2018 NELIDA MALHOTRA MD Ot I1 0 ESSENTIAL (PRIMARY) HYPERTENSION 03/16/2018 NELIDA MALHOTRA MD Ot Z79.01 SERVICE PLANNER (CURRENT) USE OF ANTICOAGULANT 03/16/2018 NELIDA MALHOTRA MD Ot Z79.82 SERVICE PLANNER (CURRENT) USE OF ASPIRIN 03/16/2018 NELIDA MALHOTRA MD Ot Z79.84 PENITENTIARY (CURRENT) USE OF ORAL HYPOGLYC 03/16/2018 NELIDA MALHOTRA MD Ot Z79.899 OTHER PENITENTIARY (CURRENT) DRUG THERAPY 03/16/2018 NELIDA MALHOTRA MD, Ot Z86.73 PRSNL HX OF TIA (TIA), AND CEREB INFRC W 06/24/2018 KELLY COBIAN MD Ot E04.2 NONTOXIC MULTINODULAR GOITER 06/26/2018 NESSA LAKHANI MD Ot E04. 2 NONTOXIC MULTINODULAR GOITER 06/26/2018 NESSA LAKHANI MD Ot E78. 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 A1 MYOCARDIAL INFARCTION TYPE 2 06/26/2018 NESSA LAKHANI MD Ot I25. 10 ATHSCL HEART DISEASE OF [place] CORONARY 06/26/2018 NESSA LAKHANI MD Ot I48. [...] 9 ACUTE KIDNEY FAILURE, UNSPECIFIED 06/26/2018 NESSA LAKHNAI MD Ot R00. 1 BRADYCARDIA, UNSPECIFIED 06/26/2018 NESSA LAKHANI MD Ot R13. 10 DYSPHAGIA, UNSPECIFIED 06/26/2018 NESSA LAKHANI MD Ot S09.93XA UNSPECIFIED INJURY OF FACE, INITIAL ENCO 06/26/2018 NESSA LAKHANI MD Ot X58.XXXA EXPOSURE TO OTHER SPECIFIED FACTORS, INI 06/26/2018 NESSA LAKHANI MD Ot Z23 ENCOUNTER FOR IMMUNIZATION 07/07/2018 KELLY [...] MD Ot I25.118 ATHSCL HEART DISEASE OF [place] COR ART W 07/20/2018 RAMY AYALA MD Ot I48. 2 CHRONIC ATRIAL FIBRILLATION 07/20/2018 RAMY AYALA MD Ot I65. 23 OCCLUSION AND STENOSIS OF BILATERAL [place] 07/20/2018 RAMY AYALA MD Ot R06. 09 OTHER FORMS OF DYSPNEA 07/20/2018 RAMY AYALA MD Ot R60. 9 EDEMA, UNSPECIFIED 07/20/2018 RAMY AYALA MD Ot Z79. 01 SERVICE PLANNER (CURRENT) USE OF ANTICOAGULANT 07/20/2018 RAMY AYALA MD Ot Z79. 82 PENITENTIARY (CURRENT) USE OF ASPIRIN 07/20/2018 RAMY AYALA MD Ot Z79.899 OTHER PENITENTIARY (CURRENT) DRUG THERAPY 07/20/2018 RAMY AYALA MD Ot Z86. 73 PRSNL HX OF TIA (TIA), AND CEREB INFRC W 07/23/2018 RAMY AYALA MD Ot E11. 9 TYPE 2 DIABETES MELLITUS WITHOUT COMPLIC 07/23/2018 RAMY AYALA MD Ot E78. 2 MIXED HYPERLIPIDEMIA 07/23/2018 RAMY AYALA MD Ot I10 ESSENTIAL (PRIMARY) HYPERTENSION 07/23/2018 RAMY AYALA MD Ot I25.118 ATHSCL HEART DISEASE OF [place] COR ART W 07/23/2018 RAMY AYALA MD Ot I48. 2 CHRONIC ATRIAL FIBRILLATION 07/23/2018 RAMY AYALA MD Ot I65. 23 OCCLUSION AND STENOSIS OF BILATERAL [place] 07/23/2018 RAMY AYALA MD Ot R06. 09 OTHER FORMS OF DYSPNEA 07/23/2018 RAMY AYALA MD Ot R60. 9 EDEMA, UNSPECIFIED 07/23/2018 RAMY AYALA MD Ot Z79. 01 SERVICE PLANNER (CURRENT) USE OF ANTICOAGULANT 07/23/2018 RAMY AYALA MD Ot Z79. 82 SERVICE PLANNER (CURRENT) USE OF ASPIRIN 07/23/2018 RAMY AYALA MD, Ot Z79.899 OTHER PENITENTIARY (CURRENT) DRUG THERAPY 07/23/2018 RAMY AYALA MD [...] MD Ot E78. 2 MIXED HYPERLIPIDEMIA 10/03/2019 LUCY [...] PRES ENCE OF CORONARY ANGIOPLASTY IMPLANT 10/03/2019 KELLY COBIAN MD Ot E04.2 NONTOXIC MULTINODULAR GOITER 10/03/2019 RAMY [...] PRES ENCE OF CORONARY ANGIOPLASTY IMPLANT 10/03/2019 Ot Z48.812 EN CNTR FOR SURGICAL AFTCR FOLLOWING SURG 10/03/2019 Ot Z95.5 PRES ENCE OF CORONARY ANGIOPLASTY IMPLANT 10/06/2019 ROVENSTINE DO, JESUS Slaughter Ot I10 ESSENTIAL (PRIMARY) HYPERTENSION 10/06/2019 ROVENSTINE DO, JESUS Slaughter Ot S39.012A STRAIN OF MUSCLE, FASCIA AND TENDON OF L 10/06/2019 ROVENSTINE DO, JESUS Slaughter Ot X58.XXXA EXPOSURE TO OTHER SPECIFIED FACTORS, INI 10/06/2019 ROVENSTINE DO, JESUS Slaughter Ot Z79.82 SERVICE PLANNER (CURRENT) USE OF ASPIRIN 10/06/2019 ROVENSTINE DO, JESUS Slaughter Ot Z88.8 ALLERGY STATUS TO OTH DRUG/MEDS/BIOL SUB 10/09/2019 ROVENSTINE DO, JESUS L Ot I10 ESSENTIAL (PRIMARY) HYPERTENSION 10/09/2019 ROVENSTINE DO, JESUS Slaughter Ot S39.012A STRAIN OF MUSCLE, FASCIA AND TENDON OF L 10/09/2019 ROVENSTINE DO, JESUS Slaughter Ot X58.XXXA EXPOSURE TO OTHER SPECIFIED FACTORS, INI 10/09/2019 ROVENSTINE DO, JESUS Slaughter Ot Z79.82 PENITENTIARY (CURRENT) USE OF ASPIRIN 10/09/2019 ROVENSTINE DO, JESUS Slaughter Ot Z88.8 ALLERGY STATUS TO OTH DRUG/MEDS/BIOL SUB Procedures There is no data. Results Test [...] culture - 06/24/18 21:45 Bacterial urine culture [id number] NRG COLONY COUNT <10,000 NRG FTX;REPORTABLE SUSCEPTIBILITY [...] ng/mL <0.028 Automated blood complete blood count ( mogram) panel - 07/20/18 11:30 Blood leukocytes [...] 10:23 CULTURE, URINE, ROUTINE SEE NOTE NRG Complete urinalysis with reflex to cultu re - 10/03/19 08:05 Urine color determination PALE YELLOW N RG Urine clarity determination CLEAR NR G Urine pH measurement by test strip 6.5 5-9 Specific gravity of urine by test [...] urobilinogen measurement by automated test strip (mass/volume) 0.2 mg/dL < = 1.0 Urine leukocyte esterase detection by dipstick NEG ATIVE NEGATIVE Automated urine sediment erythrocyte cou nt by microscopy (number/high power field) NONE NRG Automated urine sediment leukocyte count by microscopy (number/high power field) NONE NRG Bacteria detection in urine sediment by light microsco py NEGATIVE NRG Squamous epithelial cells detection in u rine sediment by light microscopy RARE NRG Crystals detection in urine sediment by light microsco py NONE NRG Casts detection in urine sediment by light microscopy NONE NRG Mucus detection in urine sediment by light microscopy NEGATIVE NRG Complete urinalysis with reflex to culture NO NRG Encounters ACCT No. Visit Date/Time Discharge Status Pt. Type Provider Facility Loc./Unit Complaint [id number] 09/27/2019 10:00:00 Document Registration [id number] 10/03/2019 08:01:00 09:00:00 DIS Outpatient JESUS VERA DO [facility] ER FS BACK PAIN [id number] 10/03/2019 12:53:00 Document Registration [id number] 03/17/2019 11:00:00 Document Registration [id number] 01/16/2019 11:18:00 00:01:00 DIS Outpatient RAMY AYALA MD [facility] CR STENT X 3 [id number] 12/12/2018 11:15:00 00:01:00 DIS Outpatient RAMY AYALA MD [facility] CR STENT X 3 [id number] 08/10/2018 14:00:00 14:00:00 CAN Preadmit KELLY COBIAN MD, V [facility] REHAB URINARY INCONTINENCE [id number] 07/20/2018 10:47:00 18:00:00 DIS Outpatient RAMY AYALA MD [facility] CATH ABN STRESS TEST [id number] 07/13/2018 08:01:00 23:59:59 CLS Outpatient RAMY AYALA MD [facility] CARD CVA,HTN [id number] 07/07/2018 12:46:00 23:59:59 CLS Outpatient RAMY AYALA MD [facility] CARD CVA,HTN [id number] 06/24/2018 17:02:00 11:21:00 DIS Inpatient NESSA LAKHANI MD [facility] ICU NEW ONSET SEIZURE [id number] 06/21/2018 08:51:00 23:59:59 CLS Outpatient KELLY COBIAN MD [facility] RAD THROID NODULE,RT [id number] 04/01/2018 07:25:00 23:59:59 CLS Preadmit LUCY PADGETT, RAMY Lange [facility] CARD CVA,HTN [id number] 03/14/2018 07:04:00 10:45:00 DIS Outpatient MARYA PADGETT, NELIDA Forrester [facility] ENDO DYSPHAGIA [id number] 03/07/2018 06:25:00 15:47:00 DIS Outpatient MARYA PADGETT, NELIDA Forrester [facility] PREOP EGD [id number] 03/01/2018 16:21:00 18:55:00 DIS Emergency ASHOK PADGETT, LAURA Loo [facility] ER R LEG SWELLING [id number] 03/17/2019 11:00:00 Document Registration
== END 2019-10-16 11:23 | disposition home or self-care (01) ==
LOC: EDUNIT# 10:47 → ER FS 10:49
DX: S90.121A Contusion of right lesser toe(s) without damage to nail, initial encounter (principal); I10 Essential (primary) hypertension; I25.10 Atherosclerotic heart disease of native coronary artery without angina pectoris; K21.9 Gastro-esophageal reflux disease without esophagitis; Z88.8 Allergy status to other drugs, medicaments and biological substances; Z86.73 Personal history of transient ischemic attack (TIA), and cerebral infarction without residual deficits; Z95.4 Presence of other heart-valve replacement; Z79.82 Long term (current) use of aspirin; X58.XXXA Exposure to other specified factors, initial encounter
CPT/HCPCS: 73660

== ENCOUNTER → 2020-08-06 | Outpatient (CLI) | payer MEDICARE, MEDICAID ==
[~2020-08-06] MED LIST changes: +AMLO-250 PO; -AMLO5TAB9 PO; -PANT40TA3 PO; +PANT40TA52 PO
== END ==
LOC: CARD 13:55
PROVIDERS: ATTEND Physician Assistant
DX: I11.9 Hypertensive heart disease without heart failure (principal); I35.8 Other nonrheumatic aortic valve disorders
CPT/HCPCS: 93306

== ENCOUNTER → 2020-10-02 | Outpatient (CLI) | payer MEDICARE, MEDICAID ==
[~2020-10-02] MED LIST changes: +REGADENOSON 0.4 MG/5 ML SYR (LEXISCAN) IV ONE
[2020-10-02 09:58] VITALS: BP 135/90
--- NOTE | 2020-10-02 14:30 | Cardiology Stress Test Report ---
Stress Test Report Date of Procedure/Referring: Date of Procedure: Oct 02, 2020 Joanne Jansen Admitting Physician Jerzy Bustos MD Indications: Atrial fibrillation Baseline Heart Rate: 87 Baseline Blood Pressure: Blood Pressure Systolic: 135 Blood Pressure Diastolic: 90 Baseline Vitals Vital Signs Date Time Temp Pulse Resp B/P (MAP) Pulse Ox O2 Delivery O2 Flow Rate FiO2 10/02/20 09:58 97 17 135/90 (105) 99 Room Air Baseline EKG: Baseline EKG: Atrial fibrillation Summary After explaining the procedure to the patient, she signed a consent and then brought to the stress nuclear laboratory. Patient received 0.4 mg Lexiscan for stress test, ECG, heart rate and blood pressure were monitored continuously. Resting and stress dose of radio tracer were injected, imaging was acquired and reviewed in short axis, horizontal long axis and vertical long axis views. TID: 1.08 SSS: 38 SDS: 17 EF: 41 1. Patient tolerated Lexiscan well 2. Large defect involving the apex, inferoapical, anteroapical and mid anterior wall with reversibility involving the anterior wall suggestive of ischemia and infarcted apex 3. Prominent left ventricle with hypokinesia involving the apex and inferoapical segment with a EF 41% RAMY AYALA MD Oct 02, 2020 14:30
== END ==
LOC: CARD 08:00
PROVIDERS: ATTEND Physician Assistant
DX: I48.0 Paroxysmal atrial fibrillation (principal)
CPT/HCPCS: 78452; 93017; A9502

== ENCOUNTER 2021-10-10 09:42 | Emergency (ER) | payer MEDICARE, MEDICAID ==
[~2021-10-10] VITALS: Ht 157.4 cm; Wt 76.3 kg
[~2021-10-10 09:42] MED LIST changes: +CYCL10TA25 PO; -CYCL10TA9 PO; -REGADENOSON 0.4 MG/5 ML SYR (LEXISCAN) IV ONE
[2021-10-10 10:14] LABS: BASOPHILS # (AUTO) 0.1 10^3/uL (0.0-0.1); BASOPHILS % (AUTO) 1 % (0-10); EOSINOPHILS # (AUTO) 0.1 10^3/uL (0.0-0.3); EOSINOPHILS % (AUTO) 2 % (0-10); HEMATOCRIT 43 % (35-52); HEMOGLOBIN 15.2 g/dL (11.5-16.0); LYMPHOCYTES # (AUTO) 1.4 10^3/uL (1.0-4.0); LYMPHOCYTES % (AUTO) 18 % (12-44); MEAN CORPUSCULAR HEMOGLOBIN 31 pg (25-34); MEAN CORPUSCULAR HGB CONC 35 g/dL (32-36); MEAN CORPUSCULAR VOLUME 88 fL (80-99); MEAN PLATELET VOLUME 10.5 fL (9.0-12.2); MONOCYTES # (AUTO) 0.7 10^3/uL (0.0-1.0); MONOCYTES % (AUTO) 9 % (0-12); NEUTROPHILS # (AUTO) 5.6 10^3/uL (1.8-7.8); NEUTROPHILS % (AUTO) 71 % (42-75); PLATELET COUNT 160 10^3/uL (130-400); WHITE BLOOD COUNT 7.9 10^3/uL (4.3-11.0)
--- NOTE | 2021-10-10 10:22 | ED Head Injury ---
General Chief Complaint: Head/Cervical Problems Stated Complaint: NECK/FACIAL BRUISING/PAIN HX CAROTID ANGIOGRAM Nursing Triage Note: This patient had a carotid angiogram procedure done on Wednesday, October 06, 2021. She presents to the ED via private vehicle and ambulates to room FS01 with and RN. The patient states that this neck pain and swelling has increased "every day since the day of her surgery, keeping her awake last night." They talked to the doctor's office who did the procedure and they advised this patient to take Tylenol for pain. She says all she is taking for pain is tylenol, the last dose was this morning around 0800. Source: patient Exam Limitations: no limitations History of Present Illness Date Seen by Provider: Oct 10, 2021 Time Seen by Provider: 10:00 Initial Comments Patient is a 76-year-old female who is 4 days status post left carotid endarterectomy who presents with increased neck swelling and bruising after resuming Eliquis 2 days ago. Patient denies increased neck pain, difficulty swallowing or speaking. Patient has not spoken with her surgeon since the time of surgery and was instructed by her PCP to come to the emergency department. Occurred: just prior to arrival Severity: mild Location: other Method of Injury: other Associated Systoms: Other Allergies and Home Medications Allergies Coded Allergies: Sywqsoa-Cjp-Rfl Reductase Inhibitor (Verified Allergy, Unknown, 10/03/19) Patient Home Medication List Home Medication List Reviewed: No Acetaminophen (Tylenol Extra Strength) 500 Mg Tablet, 1,000 MG PO Q8H PRN for PAIN-MILD, (Reported) Entered as Reported by: GITA DE JESUS on 03/07/18 1546 Aspirin (Aspir 81) 81 Mg Tablet.dr, 81 MG PO DAILY, (Reported) Entered as Reported by: GITA DE JESUS on 03/07/18 1546 Atorvastatin Calcium (Atorvastatin Calcium) 20 Mg Tablet, 20 MG PO HS, (Reported) Entered as Reported by: GITA DE JESUS on 03/07/18 1546 Carvedilol (Carvedilol) 25 Mg Tablet, 25 MG PO BID, (Reported) Entered as Reported by: SHELLY CARRIZALES on 07/20/18 1203 Cyclobenzaprine HCl (Cyclobenzaprine HCl) 10 Mg Tablet, 10 MG PO qhs PRN for SPASMS Prescribed by: JESUS VERA on 10/03/19 0833 Levetiracetam (Levetiracetam) 500 Mg Tablet, 500 MG PO BID Prescribed by: NESSA LAKHANI on 06/26/18 0958 Losartan Potassium (Losartan Potassium) 50 Mg Tablet, 50 MG PO HS, (Reported) Entered as Reported by: GITA DE JESUS on 03/07/18 154 Pantoprazole Sodium (Pantoprazole Sodium) 40 Mg Tablet.dr, 40 MG PO DAILY, (Reported) Entered as Reported by: GITA DE JESUS on 03/07/18 1546 Potassium Chloride (Potassium Chloride) 10 Meq Capsule.er, 10 MEQ PO DAILY, (Reported) Entered as Reported by: MADONNA CARNEY on 06/25/18 1548 Review of Systems Review of Systems Constitutional: see HPI Eyes: See HPI Ears, Nose, Mouth, Throat: see HPI Respiratory: see HPI Cardiovascular: see HPI Genitourinary: see HPI Musculoskeletal: see HPI Skin: see HPI Psychiatric/Neurological: See HPI Endocrine: See HPI Hematologic/Lymphatic: See HPI All Other Systems Reviewed Negative Unless Noted: No Past Ocoiyqn-Mxzevj-Zhkiku Hx Patient Social History Tobacco Use?: No Substance use?: No Alcohol Use?: No Immunizations Up To Date First/Initial COVID19 Vaccinat: Received but unknown exact date; estimated May 2020. Seasonal Allergies Seasonal Allergies: No Past Medical History Surgery/Hospitalization HX: Stroke in 1986; hip replacement in 2018; diabetes; hypertension. Surgeries: Yes (heart valve replacement) Abdominal, Joint Replacement, Orthopedic, Tubal Ligation Respiratory: No Cardiac: Yes Coronary Artery Disease, Hypertension Neurological: Yes Stroke Genitourinary: Yes Bladder Infection Gastrointestinal: No Gastroesophageal Reflux Musculoskeletal: No Endocrine: No Diabetes, Non-Insulin dep HEENT: No Cancer: No Psychosocial: No Integumentary: No Blood Disorders: No Adverse Reaction/Blood Tranf: No Physical Exam Vital Signs Vital Signs - First Documented 10/10/21 09:48 Temp 36.4 Pulse 101 Resp 22 B/P (MAP) 154/100 (118) Pulse Ox 93 O2 Delivery Room Air Capillary Refill : Height, Weight, BMI Height: 5'3.00" Weight: 150lbs. 0.0oz. 68.014793fm; 30.00 BMI Method:Stated General Appearance: WD/WN, no apparent distress HEENT: PERRL/EOMI Neck: supple, other (Left carotid surgical scar, incision clean dry and intact, dependent submandibular swelling with purpura. No palpable or pulsatile hematoma or seroma.) Cardiovascular: normal peripheral pulses, regular rate, rhythm Gastrointestinal: soft Psychiatric: alert, oriented x 3 Progress/Results/Core Measures Results/Orders Lab Results Laboratory Tests Test 10/10/21 10:00 Range/Units White Blood Count 7.9 4.3-11.0 10^3/uL Red Blood Count 4.90 3.80-5.11 10^6/uL Hemoglobin 15.2 11.5-16.0 g/dL Hematocrit 43 35-52 % Mean Corpuscular Volume 88 80-99 fL Mean Corpuscular Hemoglobin 31 25-34 pg Mean Corpuscular Hemoglobin Concent 35 32-36 g/dL Red Cell Distribution Width 13.2 10.0-14.5 % Platelet Count 160 130-400 10^3/uL Mean Platelet Volume 10.5 9.0-12.2 fL Immature Granulocyte % (Auto) 0 % Neutrophils (%) (Auto) 71 42-75 % Lymphocytes (%) (Auto) 18 12-44 % Monocytes (%) (Auto) 9 0-12 % Eosinophils (%) (Auto) 2 0-10 % Basophils (%) (Auto) 1 0-10 % Neutrophils # (Auto) 5.6 1.8-7.8 10^3/uL Lymphocytes # (Auto) 1.4 1.0-4.0 10^3/uL Monocytes # (Auto) 0.7 0.0-1.0 10^3/uL Eosinophils # (Auto) 0.1 0.0-0.3 10^3/uL Basophils # (Auto) 0.1 0.0-0.1 10^3/uL Immature Granulocyte # (Auto) 0.0 0.0-0.1 10^3/uL Sodium Level 142 135-145 MMOL/L Potassium Level 4.0 3.6-5.0 MMOL/L Chloride Level 104 98-107 MMOL/L Carbon Dioxide Level 28 21-32 MMOL/L Anion Gap 10 5-14 MMOL/L Blood Urea Nitrogen 19 H 7-18 MG/DL Creatinine 0.92 0.60-1.30 MG/DL Estimat Glomerular Filtration Rate 65 BUN/Creatinine Ratio 21 Glucose Level 150 H 70-105 MG/DL Calcium Level 9.9 8.5-10.1 MG/DL Corrected Calcium 8.5-10.1 MG/DL Total Bilirubin 1.1 H 0.1-1.0 MG/DL Aspartate Amino Transf (AST/SGOT) 19 5-34 U/L Alanine Aminotransferase (ALT/SGPT) 13 0-55 U/L Alkaline Phosphatase 47 40-136 U/L Total Protein 7.0 6.4-8.2 GM/DL Albumin 4.6 H 3.2-4.5 GM/DL My Orders Orders - JAZMINE HOWARD DO Cbc With Automated Diff (10/10/21 09:56) Comprehensive Metabolic Panel (10/10/21 09:56) Ct Angio Neck W (10/10/21 09:56) Iohexol Injection (Omnipaque 350 Mg/Ml 1 (10/10/21 10:30) Received Contrast (Hold Metformin- Contr (10/10/21 10:30) Sodium Chloride Flush (Catheter Flush Sy (10/10/21 10:30) Ns (Ivpb) (Sodium Chloride 0.9% Ivpb Bag (10/10/21 10:30) Medications Given in ED Current Medications Medications Dose Ordered Sig/Batool Route Start Time Stop Time Status Last Admin Dose Admin Iohexol 75 ml ONCE ONCE IV 10/10/21 10:30 10/10/21 10:31 DC 10/10/21 11:02 75 ML Sodium Chloride 10 ml NEEDED PRN IV 10/10/21 10:30 10/10/21 11:03 10 ML Sodium Chloride 100 ml ONCE ONCE IV 10/10/21 10:30 10/10/21 10:31 DC 10/10/21 11:03 100 ML Vital Signs/I&O 10/10/21 09:48 Temp 36.4 Pulse 101 Resp 22 B/P (MAP) 154/100 (118) Pulse Ox 93 O2 Delivery Room Air Blood Pressure Mean: 118 Departure Communication (Admissions) CTA neck: Mild extravasation of IV contrast in submandibular region per radiology report Possible postoperative bleeding on CT angio neck without airway obstruction. Case and imaging reviewed in detail with Dr. Moon on-call vascular surgeon for Audra Caicedo. Dr. Moon reviewed the images and recommends holding Eloqiuis and outptatient follow up as scheduled/ Impression Primary Impression: Postoperative complication Disposition: 01 HOME, SELF-CARE Condition: Stable Departure-Patient Inst. Decision time for Depature: 14:33 Referrals: KELLY COBIAN MD (PCP) Primary Care Physician Add. Discharge Instructions: Please hold Eloquis for the next 34 days and follow all post-operative instructions as previously directed. All discharge instructions reviewed with patient and/or family. Voiced understanding. JAZMINE HOWARD DO Oct 10, 2021 10:22
[2021-10-10] MEDS ORDERED: CATHETER FLUSH 10 ML SYR IV PRN (10:30)
[2021-10-10] MEDS ORDERED: HOLD METFORMIN - RECEIVED CONTRAST 20 ML VIAL IV SCH (10:30)
[2021-10-10] MEDS ORDERED: IOHEXOL 350 MG/ML 100 ML (OMNIPAQUE 350) VIAL IV ONE (10:30)
[2021-10-10] MEDS ORDERED: NS 100 ML (IVPB) BAG IV ONE (10:30)
[2021-10-10 10:37] LABS: SODIUM 142 MMOL/L (135-145)
[2021-10-10 10:38] LABS: ALANINE AMINOTRANSFERASE 13 U/L (0-55); ALBUMIN 4.6 GM/DL (3.2-4.5); ALKALINE PHOSPHATASE 47 U/L (40-136); BILIRUBIN,TOTAL 1.1 MG/DL (0.1-1.0); BUN/CREATININE RATIO 21; CALCIUM 9.9 MG/DL (8.5-10.1); CARBON DIOXIDE 28 MMOL/L (21-32); CHLORIDE 104 MMOL/L (98-107); CREATININE SERUM 0.92 MG/DL (0.60-1.30); GFR ESTIMATED 65; GLUCOSE 150 MG/DL (70-105)
--- NOTE | 2021-10-10 11:54 | Diagnostic Imaging Report ---
REASON FOR EXAM: Carotid procedure five days ago. Neck swelling. Bruising in the neck. COMPARISON: None. TECHNIQUE: Contrast-enhanced thin section helical images were obtained from the mediastinum to the sella with the bolus of contrast timed for the optimal opacification of the arterial structures of the neck per departmental CTA protocol. Postprocessing and retro-reconstruction with coronal and sagittal reformatted images of the angiographic views of the vessels were obtained and were reviewed. 3D reformatted images were generated on a separate workstation and were reviewed. All CT scans use one or more of the following dose optimizing techniques: automated exposure control, MA and/or KvP adjustment based on patient size and exam type or iterative reconstruction. FINDINGS: The visualized portions of the aortic arch demonstrate atherosclerotic plaque without evidence of aneurysm or dissection. There is conventional branching pattern of the great vessels of the aorta. The brachiocephalic artery is normal in course and caliber. The right and left common carotid origins are unremarkable. The origin of the left subclavian artery is patent. The common carotid arteries and internal carotid arteries demonstrate a tortuous course. There is calcified atherosclerotic plaque in the bilateral carotid bulbs and proximal internal carotid arteries. This is greatest on the right and results in less than 50% stenosis. No evidence of dissection in the carotid systems. The external carotid arteries are patent and unremarkable. The vertebral arteries are codominant. There is high-grade stenosis of at least 90% at the origin of the right vertebral artery. A second area of high-grade stenosis of approximately 80 to 90% is seen at the C7 level. The left vertebral artery demonstrates a normal caliber throughout its cervical course. There is high-grade stenosis in the distal V4 segment of the left vertebral artery. Both PICA are visualized and have a normal appearance. Soft tissue edema is visualized in the deep soft tissues of the left neck in the parotid and submandibular regions. Associated subcutaneous emphysema is seen near the left parotid gland. Adjacent to the left facial artery, a small area of enhancement is seen measuring 0.4 cm (image 160 series 5). The osseous structures of the cervical spine are unremarkable. The thyroid has a multinodular appearance with the largest nodule measuring 1.7 cm. Included views through the lung apices demonstrate no focal consolidation. IMPRESSION: 1. Soft tissue edema and inflammation within the deep soft tissues of the left neck with associated subcutaneous emphysema. There is a small area of enhancement adjacent to the left facial artery measuring 0.4 cm which may represent an area of contrast extravasation secondary to vascular injury. Ultrasound could be considered to further evaluate for active extravasation. 2. Two areas of high-grade stenosis in the proximal right vertebral artery. Additional high-grade stenosis is seen in the distal V4 segment of the left vertebral artery. 3. No significant stenosis is seen in the bilateral common and internal carotid arteries. 4. Multinodular thyroid. Consider thyroid ultrasound to further evaluate. Findings were called to Dr. Douglass at 11:47 a.m. on 10/10/[address] Trung Manning. Dictated by: Dictated on workstation # [id number]
[2021-10-10 15:22] VITALS: BP 154/100
== END 2021-10-10 14:50 | disposition home or self-care (01) ==
LOC: EDUNIT# 09:42 → ER FS 09:44
DX: L76.82 Other postprocedural complications of skin and subcutaneous tissue (principal)
CPT/HCPCS: 36415; 70498; 80053; 85025; Q9967

== ENCOUNTER 2021-12-11 09:52 | Emergency (ER) | payer OTHER, MEDICAID ==
[2021-12-11] MEDS ORDERED: KETOROLAC 30 MG/ML VIAL IM STA (10:11)
[2021-12-11] MEDS ORDERED: ORPHENADRINE 60 MG/2 ML (NORFLEX) AMP (ED ONLY) IM STA (10:11)
[2021-12-11 10:14] LABS: BILIRUBIN,URINE NEGATIVE (NEGATIVE); CLARITY,URINE TURBID; COLOR,URINE YELLOW; GLUCOSE, URINE (UA) NEGATIVE (NEGATIVE); KETONES,URINE NEGATIVE (NEGATIVE); LEUKOCYTE ESTERASE ,URINE 2+ (NEGATIVE); NITRITE,URINE NEGATIVE (NEGATIVE); PH,URINE 7.5 (5-9); PROTEIN,URINE NEGATIVE (NEGATIVE)
[2021-12-11 10:24] LABS: AMORPHOUS SEDIMENT,UR FEW AMOR PHOSPHATE /LPF; BACTERIA,URINE MODERATE /HPF; RBC,URINE 0-2 /HPF
--- NOTE | 2021-12-11 10:44 | ED Back Pain ---
General Chief Complaint: Back Problems Stated Complaint: BACK PAIN Nursing Triage Note: PT REPORT SHE WAS MAKING HER BED YESTERDAY AND SHE PULLED SOMETHING IN HER MID BACK. Source of Information: Patient, Family History of Present Illness Date Seen by Provider: Dec 11, 2021 Time Seen by Provider: 09:58 Initial Comments 76-year-old female presenting with complaints of pain in the lower ribs and middle of her back since yesterday. She was making a bed and felt like she pulled something. She had taken some Tylenol yesterday with no improvement. She continued to have pain today so she came to the emergency department. She denies any actual fall or direct trauma to her spine. She has no numbness or weakness in her extremities other than her chronic issues from having a prior stroke. She has denied having fever, chills, headache, loss of bowel or bladder control. Timing/Duration: 24 Hours Severity: Severe (When moving or walking but it is mild when sitting or laying down) Pain/Injury Location: Back (Right side of her spine in the lower ribs and mid back) Method of Injury: Other (Twisted or pulled something while making a bed yesterday) Modifying Factors: Worse With Movement Associated Symptoms: No fever, No weakness, No numbness in legs/feet, No tingling in legs/feet, No sensory/motor loss; lower back pain (Right side); No loss of bladder control, No loss of bowel control Allergies and Home Medications Allergies Coded Allergies: Odbgnum-Exk-Zuy Reductase Inhibitor (Verified Allergy, Unknown, 10/03/19) Patient Home Medication List Home Medication List Reviewed: Yes Acetaminophen (Tylenol Extra Strength) 500 Mg Tablet, 1,000 MG PO Q8H PRN for PAIN-MILD, (Reported) Entered as Reported by: GITA DE JESUS on 03/07/18 1546 Aspirin (Aspir 81) 81 Mg Tablet.dr, 81 MG PO DAILY, (Reported) Entered as Reported by: GITA DE JESUS on 03/07/18 154 Atorvastatin Calcium (Atorvastatin Calcium) 20 Mg Tablet, 20 MG PO HS, (Reported) Entered as Reported by: GITA DE JESUS on 03/07/18 1546 Carvedilol (Carvedilol) 25 Mg Tablet, 25 MG PO BID, (Reported) Entered as Reported by: SHELLY CARRIZALES on 07/20/18 1203 Cyclobenzaprine HCl (Cyclobenzaprine HCl) 10 Mg Tablet, 10 MG PO qhs PRN for SPASMS Prescribed by: JESUS VERA on 10/03/19 0833 Levetiracetam (Levetiracetam) 500 Mg Tablet, 500 MG PO BID Prescribed by: NESSA LAKHANI on 06/26/18 0958 Losartan Potassium (Losartan Potassium) 50 Mg Tablet, 50 MG PO HS, (Reported) Entered as Reported by: GITA DE JESUS on 03/07/18 1546 Methocarbamol (Methocarbamol) 750 Mg Tablet, 750 MG PO Q8H PRN for back pain/spasm Prescribed by: REED ORTIZ on 12/11/21 1116 Nitrofurantoin Monohyd/M-Cryst (Macrobid 100 mg Capsule) 100 Mg Capsule, 1 TAB PO BID Prescribed by: REED ORTIZ on 12/11/21 1116 Pantoprazole Sodium (Pantoprazole Sodium) 40 Mg Tablet.dr, 40 MG PO DAILY, (Reported) Entered as Reported by: GITA DE JESUS on 03/07/18 1546 Potassium Chloride (Potassium Chloride) 10 Meq Capsule.er, 10 MEQ PO DAILY, (Reported) Entered as Reported by: MADONNA CARNEY on 06/25/18 1548 Review of Systems Constitutional: No chills, No fever EENTM: no symptoms reported Respiratory: no symptoms reported Cardiovascular: no symptoms reported Gastrointestinal: no symptoms reported Genitourinary: no symptoms reported Musculoskeletal: see HPI Skin: No change in color Psychiatric/Neurological: See HPI Past Gyrxaod-Ubeocu-Ienwdw Hx Patient Social History Tobacco Use?: No Use of E-Cig and/or Vaping dev: No Substance use?: No Alcohol Use?: No Pt feels they are or have been: No Immunizations Up To Date First/Initial COVID19 Vaccinat: Received but unknown exact date; estimated May 2020. Second COVID19 Vaccination Terry: Received but unknown exact date; estimated May 2020. Third COVID19 Vaccination Date: Received but unknown exact date; estimated May 2020. Seasonal Allergies Seasonal Allergies: No Past Medical History Surgery/Hospitalization HX: Stroke in 1986; hip replacement in 2019; diabetes; hypertension. Surgeries: Yes (heart valve replacement) Abdominal, Joint Replacement, Orthopedic, Tubal Ligation Respiratory: No Cardiac: Yes Coronary Artery Disease, Hypertension Neurological: Yes Stroke Genitourinary: Yes Bladder Infection Gastrointestinal: No Gastroesophageal Reflux Musculoskeletal: No Endocrine: No Diabetes, Non-Insulin dep HEENT: No Cancer: No Psychosocial: No Integumentary: No Blood Disorders: No Adverse Reaction/Blood Tranf: No Physical Exam Vital Signs Vital Signs - First Documented 12/11/21 10:00 Temp 35.9 Pulse 80 Resp 16 B/P (MAP) 183/82 (115) Pulse Ox 96 O2 Delivery Room Air Capillary Refill : Less Than 3 Seconds Height, Weight, BMI Height: 5'3.00" Weight: 150lbs. 0.0oz. 68.777161lk; 30.00 BMI Method:Stated General Appearance: No Apparent Distress, WD/WN Cardiovascular: Regular Rate, Rhythm, Normal Peripheral Pulses Respiratory: Chest Non Tender, Lungs Clear, Normal Breath Sounds Back: No CVA Tenderness, No Vertebral Tenderness, Muscle Spasm (Tightness to her muscles to the right side of her spine in the lower thoracic and upper lumbar area) Neurologic/Psychiatric: Alert, Oriented x3 Skin: Normal Color, Warm/Dry; No Rash Progress/Results/Core Measures Results/Orders Lab Results Laboratory Tests Test 12/11/21 10:00 Range/Units Urine Color YELLOW Urine Clarity TURBID Urine pH 7.5 5-9 Urine Specific Ruffin 1.015 L 1.016-1.022 Urine Protein NEGATIVE NEGATIVE Urine Glucose (UA) NEGATIVE NEGATIVE Urine Ketones NEGATIVE NEGATIVE Urine Nitrite NEGATIVE NEGATIVE Urine Bilirubin NEGATIVE NEGATIVE Urine Urobilinogen 0.2 < = 1.0 MG/DL Urine Leukocyte Esterase 2+ H NEGATIVE Urine RBC (Auto) NEGATIVE NEGATIVE Urine RBC 0-2 /HPF Urine WBC 10-25 H /HPF Urine Squamous Epithelial Cells 5-10 /HPF Urine Crystals PRESENT H /LPF Urine Amorphous Sediment FEW ADRIENNE PHOSPHATE H /LPF Urine Bacteria MODERATE H /HPF Urine Casts /LPF Urine Mucus NEGATIVE /LPF Urine Culture Indicated YES My Orders Orders - REED ORTIZ MD Ua Culture If Indicated (12/11/21 10:02) Ct Thoracic/Lumbar Spine Wo (12/11/21 10:11) Ketorolac Injection (Toradol Injection) (12/11/21 10:11) Orphenadrine Inj (Ed Only) (Norflex Inje (12/11/21 10:11) Urine Culture (12/11/21 10:00) Vital Signs/I&O 12/11/21 12/11/21 10:00 11:32 Temp 35.9 35.9 Pulse 80 80 Resp 16 16 B/P (MAP) 183/82 (115) 183/82 Pulse Ox 96 96 O2 Delivery Room Air Room Air Blood Pressure Mean: 115 Progress Progress Note #1: Progress Note Obtain a urinalysis to look for any signs of infection. CT scan of the thoracic and lumbar spine looking for compression fracture, hematoma, mass, rib fracture, mass. Try a dose of Toradol 30 mg IM and Norflex for muscle spasms 60 mg IM x1. Progress Note #2: Progress Note On my review of her urinalysis she does have 2+ leukocyte esterase with white blood cells and bacteria. This certainly would be concerning for urinary tract infection. This may be contributing to her back pain. CT scan of the thoracic and lumbar spine was read out by radiologist as no acute fracture or fluid collection. She has chronic degenerative changes and disc changes. Will treat for urinary tract infection and continue a muscle relaxer at home. Encouraged alternate ice and heat to the area. Check with her primary care provider for continued concerns. Diagnostic Imaging Diagonstic Imaging: CT Plain Films/CT/US/NM/MRI: other (lumbar/thoracic spine) Comments NAME: [facility] REC#: [id number] PT STATUS: REG ER : 1945 PHYSICIAN: REED ORTIZ MD ADMIT DATE: 12/11/21/ER FS Draft Date of Exam:12/11/21 CT THORACIC/LUMBAR SPINE WO PROCEDURE: CT thoracic and lumbar spine without contrast. TECHNIQUE: Multiple contiguous axial images were obtained through the thoracic and lumbar spine without the use of intravenous contrast. Sagittal and coronal reformations were then performed. All CT scans use one or more of the following dose optimizing techniques: automated exposure control, MA and/or KvP adjustment based on a patient size and exam type, or iterative reconstruction. INDICATION: Back injury CT thoracic and lumbar spine There is a grade 1 spondylolisthesis at L4-L5. Alignment of the thoracic and lumbar spine otherwise unremarkable. There are no compression fractures seen. There are no appreciable pars defects. There is mild diffuse spondylosis with small osteophytes forming anteriorly in the thoracic and lumbar spine. IMPRESSION: Mild spondylosis of the lumbar and thoracic spine. There is vacuum disc phenomena at L4-L5 with grade 1 spondylolisthesis. There is no appreciable disc herniation or spinal stenosis. There are no fractures seen. Dictated on workstation # [id number] Dict: 12/11/21 1057 Trans: 12/11/21 1100 MICHELLE [id number] Interpreted by: LAURA COWAN MD Electronically signed by: Reviewed: Reviewed by Me Departure Impression Primary Impression: Strain of lumbar paraspinal muscle Qualified Codes: S39.012A - Strain of muscle, fascia and tendon of lower back, initial encounter Additional Impression: Acute cystitis without hematuria Disposition: HOME, SELF-CARE Condition: Stable Departure-Patient Inst. Decision time for Depature: 11:13 Referrals: KELLY COBIAN MD (PCP/Family) Primary Care Physician Patient Instructions: Muscle Strain ED, Urinary Tract Infection, Adult ED, Using Cold for Pain Add. Discharge Instructions: Try alternating ice and heat to the back to help with muscle spasm and inflammat ion. You may continue with acetaminophen or Tylenol to help with pain. Use the muscle relaxer to help with muscle strain and spasms. Take the full course of antibiotics to treat for urinary tract infection and make sure you are drinking plenty of water and fluids to stay well-hydrated. Check back with your regular provider for continued concerns or if not improving. All discharge instructions reviewed with patient and/or family. Voiced understanding. Scripts Methocarbamol (Methocarbamol) 750 Mg Tablet 750 MG PO Q8H PRN for back pain/spasm for 7 Days, #21 TAB 0 Refills Prov: REED ORTIZ MD 12/11/21 Nitrofurantoin Monohyd/M-Cryst (Macrobid 100 mg Capsule) 100 Mg Capsule 1 TAB PO BID for UTI for 7 Days, #14 CAP 0 Refills Prov: REED ORTIZ MD 12/11/21 REED ORTIZ MD Dec 11, 2021 10:44
--- NOTE | 2021-12-11 11:00 | Diagnostic Imaging Report ---
PROCEDURE: CT thoracic and lumbar spine without contrast. TECHNIQUE: Multiple contiguous axial images were obtained through the thoracic and lumbar spine without the use of intravenous contrast. Sagittal and coronal reformations were then performed. All CT scans use one or more of the following dose optimizing techniques: automated exposure control, MA and/or KvP adjustment based on a patient size and exam type, or iterative reconstruction. INDICATION: Back injury CT thoracic and lumbar spine There is a grade 1 spondylolisthesis at L4-L5. Alignment of the thoracic and lumbar spine otherwise unremarkable. There are no compression fractures seen. There are no appreciable pars defects. There is mild diffuse spondylosis with small osteophytes forming anteriorly in the thoracic and lumbar spine. IMPRESSION: Mild spondylosis of the lumbar and thoracic spine. There is vacuum disc phenomena at L4-L5 with grade 1 spondylolisthesis. There is no appreciable disc herniation or spinal stenosis. There are no fractures seen. Dictated by: Dictated on workstation # [id number]
[2021-12-11] MEDS ORDERED: METH-732 PO (11:16)
[2021-12-11] MEDS ORDERED: NITR-65 PO (11:16)
[2021-12-11 11:32] VITALS: BP 183/82
== END 2021-12-11 11:34 | disposition home or self-care (01) ==
LOC: EDUNIT# 09:52 → ER FS 09:54
DX: S39.012A Strain of muscle, fascia and tendon of lower back, initial encounter (principal); N30.00 Acute cystitis without hematuria; Z28.311 Partially vaccinated for COVID-19; X50.1XXA Overexertion from prolonged static or awkward postures, initial encounter
CPT/HCPCS: 72128; 72131; 81000; 87077; 87088; 87186

== ENCOUNTER 2022-03-18 19:33 | Outpatient (CLI) | payer OTHER, MEDICAID ==
[~2022-03-18 19:33] MED LIST changes: +METH-732 PO; +NITR-65 PO; -POTA10CA43 PO; +POTA10CA44 PO
== END 2022-03-19 06:45 | disposition home or self-care (01) ==
LOC: SLEEP 19:33
PROVIDERS: ATTEND Otolaryngology Otolaryngology/Facial Plastic Surgery
DX: G47.19 Other hypersomnia (principal)
CPT/HCPCS: 95810